=== PATIENT | female | born 1950 | race Caucasian/White ===

== ENCOUNTER → 2016-09-06 | Outpatient (REF) | payer BC ==
[~2016-09-06] MED LIST: ADVA230A INH; ALBU17IN INH; ALBU83IN INH; COLA100C PO; GABA300C3 PO; LEVA500T PO; PERC5TAB6 PO; PRED10TA PO; SPIR1CAP INH; VICO5TAB16 PO; [UNRECOGNIZED DRUG - REMARK] PO
== END ==
LOC: M LAB REF 17:02
PROVIDERS: ATTEND Internal Medicine Pulmonary Disease
DX: R05 Cough (principal)

== ENCOUNTER → 2016-09-21 | Outpatient (REF) | payer BC | LOC: M LAB REF 16:52 | PROVIDERS: ATTEND Internal Medicine Pulmonary Disease | DX: J44.1 Chronic obstructive pulmonary disease with (acute) exacerbation (principal) ==

== ENCOUNTER 2016-10-07 09:12 | Emergency (ER) | payer BC ==
[~2016-10-07] VITALS: Ht 154.9 cm; Wt 68.5 kg
[2016-10-07] MEDS ORDERED: methylPREDNISolone INJ 125 MG/2 ML VIAL (J2930) As Ordered ONE (10:25)
--- NOTE | 2016-10-07 10:28 | REP ---
Clinical: Cough . Comparison: 01/05/2015 . Technique: PA and lateral. Findings: The mediastinum and cardiac silhouette are normal. The lung [place] are clear and without acute consolidation, effusion, or pneumothorax. The skeletal structures are intact and normal. Impression: 1. No acute cardiopulmonary process. Signed by Pola Michele MD 10/07/2016 10:20 A
[2016-10-07] MEDS ORDERED: BUDESONIDE 0.5 MG/2 ML INHALATION SUSPENSION INH ONE (10:45)
[2016-10-07 10:54] LABS: BASO % 0.7 % (0.0-1.0); EOS # 0.1 K/mm3 (0.0-0.50); EOS % 1.8 % (0.0-3.0); LARGE UNSTAINED CELL # 0.1 K/mm3 (0.0-0.4); LARGE UNSTAINED CELL % 2.2 % (0.0-4.0); LYMPH # 0.9 K/mm3 (1.5-4.5); LYMPH % 25.3 % (24.0-44.0); MEAN CORPUSCULAR HEMOGLOBIN 30.1 pg (27.0-33.0); MONO # 0.3 K/mm3 (0.0-0.8); MONO % 7.4 % (0.0-5.0); NEUTROPHILS # 2.2 K/mm3 (1.8-7.7); NEUTROPHILS % 62.6 % (36.0-66.0); PLATELET COUNT, AUTOMATED 210 k/mm3 (150-450); RED CELL DISTRIBUTION WIDTH 11.9 % (11.5-14.5); WHITE BLOOD COUNT 3.5 K/mm3 (4.0-10.0)
[2016-10-07 11:15] LABS: ANION GAP 7 MEQ/L (8-16); BLOOD UREA NITROGEN 9 MG/DL (7-18); CALCIUM LEVEL 8.9 MG/DL (8.8-10.2); CARBON DIOXIDE LEVEL 27 MEQ/L (21-32); CHLORIDE LEVEL 105 MEQ/L (98-107); GLOMERULAR FILTRATION RATE > 60.0 (>45); GLUCOSE, FASTING 103 MG/DL (80-110); POTASSIUM SERUM 4.1 MEQ/L (3.5-5.1); SODIUM LEVEL 139 MEQ/L (136-145)
--- NOTE | 2016-10-07 12:27 | EDDOCDS ---
Nurse's Notes [facility] Name: Susan Long Age: 66 yrs Sex: Female : 1950 Arrival Date: 10/07/2016 Time: 09:12 Bed I4 / M4 Private MD: Jaylene Iverson E Diagnosis: Chronic obstructive pulmonary disease with (acute) exacerbation Presentation: 10/07 09:19 Presenting complaint: Patient states: cough, shortness of breath, fever x 1 month. Pt kc3 treated by PCP with antibiotics with no relief of symptoms. Pt reports worsening cough with increase in sputum. Pt [facility] by [facility]. Adult Sepsis Screening: The patient does not have new or worsening altered mentation. Patient has a respiratory rate of greater than or equal to 22 (1 point). Systolic blood pressure is greater than 100. Patient has a qSOFA score of 1- Negative Sepsis Screen. Suicide/Homicide risk assessment- the patient denies having any suicidal and/or homicidal ideations and does not present with any other emotional, behavioral or mental health complaints. Status: Patient is not a enterprise services manager or dependent. Transition of care: patient was not received from another setting of care. 09:19 Acuity: SAVANNAH Level 3 kc3 09:19 Method Of Arrival: Walkin/Carried/Asstd kc3 Triage Assessment: 09:24 General: Appears in no apparent distress, Behavior is anxious, appropriate for age, kc3 cooperative. Pain: Location: left leg Pain currently is 7 out of 10 on a pain scale. HIV screening NA for this visit Offered previously. Neurological: No deficits noted. Respiratory: Onset: The symptoms/episode began/occurred one month, Respiratory effort is even, Reports shortness of breath cough that is productive, pain with cough Pain is 10 out of 10 on a pain scale. Derm: Skin is pink, warm & dry. Historical: - Allergies: Bactrim (Hives); Levaquin; - Home Meds: 1. Albuterol Inhl 2. ProAir HFA 90 mcg/actuation inhalation HFAA 3. doxycycline hyclate 100 mg Oral cap 1 cap every 12 hours - PMHx: Arthritis; COPD; Cervical spine stenosis; - PSHx: Hysterectomy; Lumpectomy- Right; ; - Social history: Smoking status: Patient states former smoker of tobacco. No barriers to communication noted, The patient speaks fluent Spanish, Speaks appropriately for age. - Family history: Not pertinent. - : The pt / caregiver states he / she is not on anticoagulants. Home medication list is obtained from the patient. - Exposure Risk Screening:: None identified. Screenin:41 Screening information is obtained from the patient. Fall risk: At risk due to gait dls disturbance. Assistance ADL's: requires no assistance with activities of daily living. Abuse/DV Screen: The patient / caregiver reports he/she is: not in a situation that causes fear, pain or injury. Nutritional screening: No deficits noted. Advance Directives: Currently, there is no health care proxy. There is no active DNR order. There is no living will. There is no Power of Mechanism Inspector. Advance directive information has not previously been placed in an [facility] medical record. home support is adequate. Assessment: 11:42 General: Appears slender, uncomfortable, Behavior is anxious, cooperative. dls Neurological: No deficits noted. EENT: No deficits noted. Respiratory: Airway is patent Respiratory effort is even, Respiratory pattern is regular, symmetrical, Breath sounds are coarse inspiratory expiratory bilaterally. Breath sounds are diminished bilaterally. Reports shortness of breath at rest on exertion cough that is non-productive, persistent. GI: No deficits noted. : No deficits noted. Derm: No deficits noted. Musculoskeletal: No deficits noted. 11:44 General: Attempted to ambulate pt who only tolerated from room to doorway before she dls could not tolerate any more SAO2 was 97% but pt could not tolerate more exertion frequent harsh cough.. 12:24 Reassessment: Patient appears in no apparent distress at this time. Patient denies pain rs3 at this time. Patient states feeling better. Patient states symptoms have improved. 12:25 Cardiovascular: Capillary refill < 3 seconds Chest pain is denied. rs3 Vital Signs: 09:14 BP 176 / 75; Pulse 112; Resp 24; Temp 99.6(O); Pulse Ox 97% ; Weight 68.49 kg; Height 5 cmb ft. 1 in. (154.94 cm); Pain 10/10; 11:41 BP 128 / 102; Pulse 77; Resp 22; Temp 99.0(T); Pulse Ox 97% on R/A; Pain 0/10; dem1 09:14 Body Mass Index 28.53 (68.49 kg, 154.94 cm) cmb 11:41 Patient ambulated with pulse oximetry with a constant stat of 97%. Patient refused to dem1 continue ambulating after walking approximately 6ft. Vitals: 09:14 Log In Time: October 07, 2016 at 09:12. cmb ED Course: 09:14 Patient visited by Rhiannon Mathias. cmb 09:14 Jaylene Iverson is Private Physician. cmb 09:14 Patient moved to Waiting cmb 09:19 RN notified that patient meets Red Flag criteria. cmb 09:21 Triage Initiated kc3 09:29 Patient moved to Pre RCE kc3 09:43 Patient moved to Triage 1 mlb1 09:56 Roby Salgado PA-C is PHCP. cc10 09:56 Nas Zamora MD is Attending Physician. cc10 09:56 Patient visited by Roby Salgado PA-C. cc10 10:02 Patient moved to I4 / M4 mlb1 10:03 Patient visited by Roby Salgado PA-C. cc10 10:14 [facility] Payment Agreement was scanned into [employer] and attached to record. lg 10:33 Chest, 2 View (pa\E\lat) Returned. EDMS 10:46 BLOOD CULTURES Sent. dls 10:46 Lactic Acid (Arrington tube on ice) Sent. dls 10:46 Basic Metabolic Profile Sent. dls 10:46 CBC with Diff Sent. dls 10:47 Inserted saline lock: 20 gauge in left hand and blood collected. The patient tolerated dls the procedure well. No procedures done that require assistance. 11:18 Patient visited by Ginette Barkley RN. rs3 11:41 The patient / caregiver is instructed regarding the plan of care and ED course. dls Accompanied by Significant Other, Patient has correct armband on for positive identification. Placed in gown. Bed in low position. Call light in reach. Side rails up X 1. 11:43 Patient visited by Angel Jarrell. dem1 12:02 Jono Tucker DO is Referral Physician. cc10 12:05 Patient visited by Angel Jarrell. dem1 Administered Medications: 10:17 CANCELLED (Other Intervention Used): Pulmicort 2 mg Inhalation once cc10 10:46 Drug: Solu-MEDROL 125 mg [Solu-Medrol 500 mg intravenous solution (125 mg)] Route: IVP; dls Site: left hand; 11:08 Drug: Pulmicort 1 mg Route: Inhalation; cs15 RT: 11:09 Initial Med Neb Given as ordered. Respiratory: Respiratory effort is labored, cs15 Respiratory pattern is regular Sputum is thick yellow Breath sounds are coarse Breath sounds with crackles bilaterally. Reports that she has end stage COPD and that she was unable to take her long acting drug this morning. Order Results: Lab Order: Basic Metabolic Profile; SPEC'M 10/07/16 10:45 Test: GLUCOSE, FASTING; Value: 103; Range: 80-110; Units: MG/DL; Status: F Test: BLOOD UREA NITROGEN; Value: 9; Range: 7-18; Units: MG/DL; Status: F Test: CREATININE FOR GFR; Value: 0.70; Range: 0.55-1.02; Units: MG/DL; Status: F Test: GLOMERULAR FILTRATION RATE; Value: > 60.0; Range: >45; Status: F Test: SODIUM LEVEL; Value: 139; Range: 136-145; Units: MEQ/L; Status: F Test: POTASSIUM SERUM; Value: 4.1; Range: 3.5-5.1; Units: MEQ/L; Status: F Test: CHLORIDE LEVEL; Value: 105; Range: 98-107; Units: MEQ/L; Status: F Test: CARBON DIOXIDE LEVEL; Value: 27; Range: 21-32; Units: MEQ/L; Status: F Test: ANION GAP; Value: 7; Range: 8-16; Abnormal: Below low normal; Units: MEQ/L; Status: F Test: CALCIUM LEVEL; Value: 8.9; Range: 8.8-10.2; Units: MG/DL; Status: F Test Note: ; Units are mL/min/1.73 m2 Chronic Kidney Disease Staging per NKF: Stage I & II GFR >=60 Normal to Mildly Decreased Stage III GFR 30-59 Moderately Decreased Stage IV GFR 15-29 Severely Decreased Stage V GFR <15 Very Little GFR Left ESRD GFR <15 on CHIEF SECURITY OFFICER Lab Order: CBC with Diff; SPEC'M 10/07/16 10:45 Test: WHITE BLOOD COUNT; Value: 3.5; Range: 4.0-10.0; Abnormal: Below low normal; Units: K/mm3; Status: F Test: RED BLOOD COUNT; Value: 4.51; Range: 4.00-5.40; Units: M/mm3; Status: F Test: HEMOGLOBIN; Value: 13.6; Range: 12.0-16.0; Units: g/dl; Status: F Test: HEMATOCRIT; Value: 38.8; Range: 36.0-47.0; Units: %; Status: F Test: MEAN CORPUSCULAR VOLUME; Value: 86.0; Range: 80.0-96.0; Units: fl; Status: F Test: MEAN CORPUSCULAR HEMOGLOBIN; Value: 30.1; Range: 27.0-33.0; Units: pg; Status: F Test: MEAN CORPUSCULAR HGB CONC; Value: 35.0; Range: 32.0-36.5; Units: g/dl; Status: F Test: RED CELL DISTRIBUTION WIDTH; Value: 11.9; Range: 11.5-14.5; Units: %; Status: F Test: PLATELET COUNT, AUTOMATED; Value: 210; Range: 150-450; Units: k/mm3; Status: F Test: NEUTROPHILS %; Value: 62.6; Range: 36.0-66.0; Units: %; Status: F Test: LYMPH %; Value: 25.3; Range: 24.0-44.0; Units: %; Status: F Test: MONO %; Value: 7.4; Range: 0.0-5.0; Abnormal: Above high normal; Units: %; Status: F Test: EOS %; Value: 1.8; Range: 0.0-3.0; Units: %; Status: F Test: BASO %; Value: 0.7; Range: 0.0-1.0; Units: %; Status: F Test: LARGE UNSTAINED CELL %; Value: 2.2; Range: 0.0-4.0; Units: %; Status: F Test: NEUTROPHILS #; Value: 2.2; Range: 1.8-7.7; Units: K/mm3; Status: F Test: LYMPH #; Value: 0.9; Range: 1.5-4.5; Abnormal: Below low normal; Units: K/mm3; Status: F Test: MONO #; Value: 0.3; Range: 0.0-0.8; Units: K/mm3; Status: F Test: EOS #; Value: 0.1; Range: 0.0-0.50; Units: K/mm3; Status: F Test: BASO #; Value: 0.0; Range: 0.0-0.2; Units: K/mm3; Status: F Test: LARGE UNSTAINED CELL #; Value: 0.1; Range: 0.0-0.4; Units: K/mm3; Status: F Lab Order: D-Dimer Quant; SPEC'M 10/07/16 11:12 Test: D-DIMER QUANT; Value: 323.6; Range: <500; Units: ng/ml; Status: F Lab Order: Lactic Acid (Arrington tube on ice); SPEC'M 10/07/16 10:45 Test: LACTIC ACID SEPSIS PROTOCOL; Value: 1.4; Range: 0.4-2.0; Units: MMOL/L; Status: F Radiology Order: Chest, 2 View (pa\E\lat) Test: Chest, 2 View (pa\E\lat) REASON FOR EXAMINATION: Cough; Clinical: Cough .; ; Comparison: 01/05/2015 .; ; Technique: PA and lateral.; ; Findings:; The mediastinum and cardiac silhouette are normal. The lung [place] are clear and; without acute consolidation, effusion, or pneumothorax. The skeletal structures; are intact and normal.; ; Impression:; 1. No acute cardiopulmonary process.; ; ; Signed by; Pola Michele MD 10/07/2016 10:20 A; Outcome: 12:02 Discharge ordered by Provider. cc10 12:24 Discharge Assessment: patient administered narcotics - no. The following High Risk rs3 Discharge criteria are identified: None. Discharged to home with family. Condition: stable. Discharge instructions given to patient, Instructed on discharge instructions, follow up and referral plans. medication usage, Demonstrated understanding of instructions, medications, Pt was receptive of discharge instructions/ teaching. Prescriptions given X 1. No special radiology studies were completed. Property :Personal belongings accompany Pt. 12:25 Patient left the ED. rs3 Signatures: Dispatcher [facility] Pat Billings RN RN Tin Cotton, Reg Reg lg Melvin Horvath RN RN mlb1 Ginette Barkley,RN RN rs3 Angel Jarrell dem1 Rhiannon Mathias cmb Roby Salgado, PA-C PA-C cc10 Clair Horton,RASHIDA RN kc3 Gigi Nunes,RT RT cs15 Corrections: (The following items were deleted from the chart) 09:26 09:19 Presenting complaint: Patient states: cough, shortness of breath, fever x 1 kc3 month. Pt treated by PCP with antibiotics with no relief of symptoms. Pt reports worsening cough with increase in sputum. kc3 MTDD
--- NOTE | 2016-10-07 12:27 | EDDOCDS ---
Physician Documentation [facility] Name: Susan Long Age: 66 yrs Sex: Female : 1950 Arrival Date: 10/07/2016 Time: 09:12 Bed I4 / M4 Private MD: Jaylene Iverson E Disposition: 10/07/16 12:02 Discharged to Home/Self Care. Impression: Chronic obstructive pulmonary disease with (acute) exacerbation. - Condition is Stable. - Discharge Instructions: Chronic Obstructive Pulmonary Disease. - Prescriptions for Prednisone 20 mg Oral Tablet - take 1 tablet by ORAL route once daily for 5 days; 5 tablet. - Medication Reconciliation form. - Follow up: Emergency Department; When: As needed. Follow up: Jono Tucker DO; When: Call to arrange an appointment; Reason: Wound/Symptom Recheck, Recheck today's complaints, Worsening of conditions, Continuance of care. - Problem is chronic. - Symptoms have improved. Historical: - Allergies: Bactrim (Hives); Levaquin; - Home Meds: 1. Albuterol Inhl 2. ProAir HFA 90 mcg/actuation inhalation HFAA 3. doxycycline hyclate 100 mg Oral cap 1 cap every 12 hours - PMHx: Arthritis; COPD; Cervical spine stenosis; - PSHx: Hysterectomy; Lumpectomy- Right; ; - Social history: Smoking status: Patient states former smoker of tobacco. No barriers to communication noted, The patient speaks fluent Romanian, Speaks appropriately for age. - Family history: Not pertinent. - : The pt / caregiver states he / she is not on anticoagulants. Home medication list is obtained from the patient. - Exposure Risk Screening:: None identified. Vital Signs: 10/07 09:14 BP 176 / 75; Pulse 112; Resp 24; Temp 99.6(O); Pulse Ox 97% ; Weight 68.49 kg / 150.99 cmb lbs; Height 5 ft. 1 in. (154.94 cm); Pain 10/10; 11:41 BP 128 / 102; Pulse 77; Resp 22; Temp 99.0(T); Pulse Ox 97% on R/A; Pain 0/10; dem1 09:14 Body Mass Index 28.53 (68.49 kg, 154.94 cm) cmb 11:41 Patient ambulated with pulse oximetry with a constant stat of 97%. Patient refused to dem1 continue ambulating after walking approximately 6ft. MDM: 10:05 Solu-MEDROL 125 mg IVP once ordered. cc10 10:05 -Blood Culture (Adults Only), peripheral from different site, or from device/port/PICC cc10 etc. if present ordered. 10:05 IV Saline Lock ordered. cc10 10:05 Call Respiratory ordered. cc10 10:06 Basic Metabolic Profile Ordered. EDMS 10:06 CBC with Diff Ordered. EDMS 10:06 D-Dimer Quant Ordered. EDMS 10:06 Lactic Acid (Arrington tube on ice) Ordered. EDMS 10:06 -Blood Culture Ordered. EDMS 10:07 Chest, 2 View (pa\E\lat) Ordered. EDMS 10:07 Call Respiratory complete. dem1 10:09 -Blood Culture (Adults Only), peripheral from different site, or from device/port/PICC dem1 etc. if present complete. 10:10 BLOOD CULTURES Ordered. EDMS 10:11 Financial registration complete. lg 10:14 [facility] Payment Agreement was scanned into [employer] and attached to record. lg 10:17 Pulmicort 1 mg Inhalation once ordered. cc10 11:34 Basic Metabolic Profile Reviewed. cc10 11:34 CBC with Diff Reviewed. cc10 11:34 D-Dimer Quant Reviewed. cc10 11:34 Lactic Acid (Arrington tube on ice) Reviewed. cc10 11:34 Chest, 2 View (pa\E\lat) Reviewed. cc10 11:34 Ambulate Patient wth Pulse Oximetry ordered. cc10 11:34 Vital Signs ordered. cc10 Administered Medications: 10:17 CANCELLED (Other Intervention Used): Pulmicort 2 mg Inhalation once cc10 10:46 Drug: Solu-MEDROL 125 mg [Solu-Medrol 500 mg intravenous solution (125 mg)] Route: IVP; dls Site: left hand; 11:08 Drug: Pulmicort 1 mg Route: Inhalation; cs15 Signatures: Dispatcher [employer] EDMS Pat Malagon RN RN dls Tin Kang, Reg Reg lg Ginette Barkley RN RN rs3 Angel Jarrell dem1 Roby Salgado, PA-C PA-C cc10 Clair Horton RN RN kc3 Gigi Nunes RT cs15 The chart was reviewed and I authenticate all verbal orders and agree with the evaluation and treatment provided.Corrections: (The following items were deleted from the chart) 10:17 10:05 Pulmicort 2 mg Inhalation once ordered. cc10 cc10 Attachments: 10:14 [facility] Payment Agreement lg MTDD
--- NOTE | 2016-10-09 13:26 | EDDOCDS ---
Physician Documentation [facility] [place] Name: Susan Long Age: 66 yrs Sex: Female : 1950 Arrival Date: 10/07/2016 Time: 09:12 Bed I4 / M4 Private MD: Jaylene Iverson E Disposition: 10/07/16 12:02 Discharged to Home/Self Care. Impression: Chronic obstructive pulmonary disease with (acute) exacerbation. - Condition is Stable. - Discharge Instructions: Chronic Obstructive Pulmonary Disease. - Prescriptions for Prednisone 20 mg Oral Tablet - take 1 tablet by ORAL route once daily for 5 days; 5 tablet. - Medication Reconciliation form. - Follow up: Emergency Department; When: As needed. Follow up: Jono Tucker DO; When: Call to arrange an appointment; Reason: Wound/Symptom Recheck, Recheck today's complaints, Worsening of conditions, Continuance of care. - Problem is chronic. - Symptoms have improved. Historical: - Allergies: Bactrim (Hives); Levaquin; - Home Meds: 1. Albuterol Inhl 2. ProAir HFA 90 mcg/actuation inhalation HFAA 3. doxycycline hyclate 100 mg Oral cap 1 cap every 12 hours - PMHx: Arthritis; COPD; Cervical spine stenosis; - PSHx: Hysterectomy; Lumpectomy- Right; ; - Social history: Smoking status: Patient states former smoker of tobacco. No barriers to communication noted, The patient speaks fluent Serbian, Speaks appropriately for age. - Family history: Not pertinent. - : The pt / caregiver states he / she is not on anticoagulants. Home medication list is obtained from the patient. - Exposure Risk Screening:: None identified. Vital Signs: 10/07 09:14 BP 176 / 75; Pulse 112; Resp 24; Temp 99.6(O); Pulse Ox 97% ; Weight 68.49 kg / 150.99 cmb lbs; Height 5 ft. 1 in. (154.94 cm); Pain 10/10; 11:41 BP 128 / 102; Pulse 77; Resp 22; Temp 99.0(T); Pulse Ox 97% on R/A; Pain 0/10; dem1 09:14 Body Mass Index 28.53 (68.49 kg, 154.94 cm) cmb 11:41 Patient ambulated with pulse oximetry with a constant stat of 97%. Patient refused to dem1 continue ambulating after walking approximately 6ft. MDM: 10:05 Solu-MEDROL 125 mg IVP once ordered. cc10 10:05 -Blood Culture (Adults Only), peripheral from different site, or from device/port/PICC cc10 etc. if present ordered. 10:05 IV Saline Lock ordered. cc10 10:05 Call Respiratory ordered. cc10 10:06 Basic Metabolic Profile Ordered. EDMS 10:06 CBC with Diff Ordered. EDMS 10:06 D-Dimer Quant Ordered. EDMS 10:06 Lactic Acid (Arrington tube on ice) Ordered. EDMS 10:06 -Blood Culture Ordered. EDMS 10:07 Chest, 2 View (pa\E\lat) Ordered. EDMS 10:07 Call Respiratory complete. dem1 10:09 -Blood Culture (Adults Only), peripheral from different site, or from device/port/PICC dem1 etc. if present complete. 10:10 BLOOD CULTURES Ordered. EDMS 10:11 Financial registration complete. lg 10:14 [facility] Payment Agreement was scanned into [employer] and attached to record. lg 10:17 Pulmicort 1 mg Inhalation once ordered. cc10 11:34 Basic Metabolic Profile Reviewed. cc10 11:34 CBC with Diff Reviewed. cc10 11:34 D-Dimer Quant Reviewed. cc10 11:34 Lactic Acid (Arrington tube on ice) Reviewed. cc10 11:34 Chest, 2 View (pa\E\lat) Reviewed. cc10 11:34 Ambulate Patient wth Pulse Oximetry ordered. cc10 11:34 Vital Signs ordered. cc10 16:56 T-Sheet-- Draft Copy was scanned into [employer] and attached to record. klr Administered Medications: 10:17 CANCELLED (Other Intervention Used): Pulmicort 2 mg Inhalation once cc10 10:46 Drug: Solu-MEDROL 125 mg [Solu-Medrol 500 mg intravenous solution (125 mg)] Route: IVP; dls Site: left hand; 11:08 Drug: Pulmicort 1 mg Route: Inhalation; cs15 Signatures: Dispatcher [employer] EDMS Pat Malagon RN RN dls Tin Kang, Todd Reg lg Ginette Barkley RN RN rs3 Angel Jarrell dem1 Roby Salgado PAGio PA-C cc10 Clair Horton,RN RN kc3 Niki Novoa klr Gigi Nunes RT cs15 The chart was reviewed and I authenticate all verbal orders and agree with the evaluation and treatment provided.Corrections: (The following items were deleted from the chart) 10:17 10:05 Pulmicort 2 mg Inhalation once ordered. cc10 cc10 Attachments: 10:14 [facility] Payment Agreement lg 16:56 T-Sheet-- Draft Copy klr Chart Complete MTDD
--- NOTE | 2016-10-09 13:26 | EDDOCDS ---
Physician Documentation [facility] Name: Susan Long Age: 66 yrs Sex: Female : 1950 Arrival Date: 10/07/2016 Time: 09:12 Bed I4 / M4 Private MD: Jaylene Iverson E Disposition: 10/07/16 12:02 Discharged to Home/Self Care. Impression: Chronic obstructive pulmonary disease with (acute) exacerbation. - Condition is Stable. - Discharge Instructions: Chronic Obstructive Pulmonary Disease. - Prescriptions for Prednisone 20 mg Oral Tablet - take 1 tablet by ORAL route once daily for 5 days; 5 tablet. - Medication Reconciliation form. - Follow up: Emergency Department; When: As needed. Follow up: Jono Tucker DO; When: Call to arrange an appointment; Reason: Wound/Symptom Recheck, Recheck today's complaints, Worsening of conditions, Continuance of care. - Problem is chronic. - Symptoms have improved. Historical: - Allergies: Bactrim (Hives); Levaquin; - Home Meds: 1. Albuterol Inhl 2. ProAir HFA 90 mcg/actuation inhalation HFAA 3. doxycycline hyclate 100 mg Oral cap 1 cap every 12 hours - PMHx: Arthritis; COPD; Cervical spine stenosis; - PSHx: Hysterectomy; Lumpectomy- Right; ; - Social history: Smoking status: Patient states former smoker of tobacco. No barriers to communication noted, The patient speaks fluent Kyrgyz, Speaks appropriately for age. - Family history: Not pertinent. - : The pt / caregiver states he / she is not on anticoagulants. Home medication list is obtained from the patient. - Exposure Risk Screening:: None identified. Vital Signs: 10/07 09:14 BP 176 / 75; Pulse 112; Resp 24; Temp 99.6(O); Pulse Ox 97% ; Weight 68.49 kg / 150.99 cmb lbs; Height 5 ft. 1 in. (154.94 cm); Pain 10/10; 11:41 BP 128 / 102; Pulse 77; Resp 22; Temp 99.0(T); Pulse Ox 97% on R/A; Pain 0/10; dem1 09:14 Body Mass Index 28.53 (68.49 kg, 154.94 cm) cmb 11:41 Patient ambulated with pulse oximetry with a constant stat of 97%. Patient refused to dem1 continue ambulating after walking approximately 6ft. MDM: 10:05 Solu-MEDROL 125 mg IVP once ordered. cc10 10:05 -Blood Culture (Adults Only), peripheral from different site, or from device/port/PICC cc10 etc. if present ordered. 10:05 IV Saline Lock ordered. cc10 10:05 Call Respiratory ordered. cc10 10:06 Basic Metabolic Profile Ordered. EDMS 10:06 CBC with Diff Ordered. EDMS 10:06 D-Dimer Quant Ordered. EDMS 10:06 Lactic Acid (Arrington tube on ice) Ordered. EDMS 10:06 -Blood Culture Ordered. EDMS 10:07 Chest, 2 View (pa\E\lat) Ordered. EDMS 10:07 Call Respiratory complete. dem1 10:09 -Blood Culture (Adults Only), peripheral from different site, or from device/port/PICC dem1 etc. if present complete. 10:10 BLOOD CULTURES Ordered. EDMS 10:11 Financial registration complete. lg 10:14 [facility] Payment Agreement was scanned into [employer] and attached to record. lg 10:17 Pulmicort 1 mg Inhalation once ordered. cc10 11:34 Basic Metabolic Profile Reviewed. cc10 11:34 CBC with Diff Reviewed. cc10 11:34 D-Dimer Quant Reviewed. cc10 11:34 Lactic Acid (Arrington tube on ice) Reviewed. cc10 11:34 Chest, 2 View (pa\E\lat) Reviewed. cc10 11:34 Ambulate Patient wth Pulse Oximetry ordered. cc10 11:34 Vital Signs ordered. cc10 16:56 T-Sheet-- Draft Copy was scanned into [employer] and attached to record. klr Administered Medications: 10:17 CANCELLED (Other Intervention Used): Pulmicort 2 mg Inhalation once cc10 10:46 Drug: Solu-MEDROL 125 mg [Solu-Medrol 500 mg intravenous solution (125 mg)] Route: IVP; dls Site: left hand; 11:08 Drug: Pulmicort 1 mg Route: Inhalation; cs15 Signatures: Dispatcher [employer] EDMS Pat Malagon RN RN dls Tin Kang, Todd Reg lg Ginette Barkley RN RN rs3 Angel Jarrell dem1 Roby Salgado PAGio PA-C cc10 Clair Horton,RN RN kc3 Niki Novoa klr Gigi Nunes RT cs15 The chart was reviewed and I authenticate all verbal orders and agree with the evaluation and treatment provided.Corrections: (The following items were deleted from the chart) 10:17 10:05 Pulmicort 2 mg Inhalation once ordered. cc10 cc10 Attachments: 10:14 [facility] Payment Agreement lg 16:56 T-Sheet-- Draft Copy klr Chart Complete MTDD
--- NOTE | 2016-10-09 13:26 | EDDOCDS ---
Nurse's Notes [facility] Name: Susan Long Age: 66 yrs Sex: Female : 1950 Arrival Date: 10/07/2016 Time: 09:12 Bed I4 / M4 Private MD: Jaylene Iverson E Diagnosis: Chronic obstructive pulmonary disease with (acute) exacerbation Presentation: 10/07 09:19 Presenting complaint: Patient states: cough, shortness of breath, fever x 1 month. Pt kc3 treated by PCP with antibiotics with no relief of symptoms. Pt reports worsening cough with increase in sputum. Pt [facility] by Dr[facility]. Adult Sepsis Screening: The patient does not have new or worsening altered mentation. Patient has a respiratory rate of greater than or equal to 22 (1 point). Systolic blood pressure is greater than 100. Patient has a qSOFA score of 1- Negative Sepsis Screen. Suicide/Homicide risk assessment- the patient denies having any suicidal and/or homicidal ideations and does not present with any other emotional, behavioral or mental health complaints. Status: Patient is not a statement services representative or dependent. Transition of care: patient was not received from another setting of care. 09:19 Acuity: SAVANNAH Level 3 kc3 09:19 Method Of Arrival: Walkin/Carried/Asstd kc3 Triage Assessment: 09:24 General: Appears in no apparent distress, Behavior is anxious, appropriate for age, kc3 cooperative. Pain: Location: left leg Pain currently is 7 out of 10 on a pain scale. HIV screening NA for this visit Offered previously. Neurological: No deficits noted. Respiratory: Onset: The symptoms/episode began/occurred one month, Respiratory effort is even, Reports shortness of breath cough that is productive, pain with cough Pain is 10 out of 10 on a pain scale. Derm: Skin is pink, warm & dry. Historical: - Allergies: Bactrim (Hives); Levaquin; - Home Meds: 1. Albuterol Inhl 2. ProAir HFA 90 mcg/actuation inhalation HFAA 3. doxycycline hyclate 100 mg Oral cap 1 cap every 12 hours - PMHx: Arthritis; COPD; Cervical spine stenosis; - PSHx: Hysterectomy; Lumpectomy- Right; ; - Social history: Smoking status: Patient states former smoker of tobacco. No barriers to communication noted, The patient speaks fluent Thai, Speaks appropriately for age. - Family history: Not pertinent. - : The pt / caregiver states he / she is not on anticoagulants. Home medication list is obtained from the patient. - Exposure Risk Screening:: None identified. Screenin:41 Screening information is obtained from the patient. Fall risk: At risk due to gait dls disturbance. Assistance ADL's: requires no assistance with activities of daily living. Abuse/DV Screen: The patient / caregiver reports he/she is: not in a situation that causes fear, pain or injury. Nutritional screening: No deficits noted. Advance Directives: Currently, there is no health care proxy. There is no active DNR order. There is no living will. There is no Power of Director Immunology. Advance directive information has not previously been placed in an [facility] medical record. home support is adequate. Assessment: 11:42 General: Appears slender, uncomfortable, Behavior is anxious, cooperative. dls Neurological: No deficits noted. EENT: No deficits noted. Respiratory: Airway is patent Respiratory effort is even, Respiratory pattern is regular, symmetrical, Breath sounds are coarse inspiratory expiratory bilaterally. Breath sounds are diminished bilaterally. Reports shortness of breath at rest on exertion cough that is non-productive, persistent. GI: No deficits noted. : No deficits noted. Derm: No deficits noted. Musculoskeletal: No deficits noted. 11:44 General: Attempted to ambulate pt who only tolerated from room to doorway before she dls could not tolerate any more SAO2 was 97% but pt could not tolerate more exertion frequent harsh cough.. 12:24 Reassessment: Patient appears in no apparent distress at this time. Patient denies pain rs3 at this time. Patient states feeling better. Patient states symptoms have improved. 12:25 Cardiovascular: Capillary refill < 3 seconds Chest pain is denied. rs3 Vital Signs: 09:14 BP 176 / 75; Pulse 112; Resp 24; Temp 99.6(O); Pulse Ox 97% ; Weight 68.49 kg; Height 5 cmb ft. 1 in. (154.94 cm); Pain 10/10; 11:41 BP 128 / 102; Pulse 77; Resp 22; Temp 99.0(T); Pulse Ox 97% on R/A; Pain 0/10; dem1 09:14 Body Mass Index 28.53 (68.49 kg, 154.94 cm) cmb 11:41 Patient ambulated with pulse oximetry with a constant stat of 97%. Patient refused to dem1 continue ambulating after walking approximately 6ft. Vitals: 09:14 Log In Time: October 07, 2016 at 09:12. cmb ED Course: 09:14 Patient visited by Rhiannon Mathias. cmb 09:14 Jaylene Iverson is Private Physician. cmb 09:14 Patient moved to Waiting cmb 09:19 RN notified that patient meets Red Flag criteria. cmb 09:21 Triage Initiated kc3 09:29 Patient moved to Pre RCE kc3 09:43 Patient moved to Triage 1 mlb1 09:56 Roby Salgado PA-C is PHCP. cc10 09:56 Nas Zamora MD is Attending Physician. cc10 09:56 Patient visited by Roby Salgado PA-C. cc10 10:02 Patient moved to I4 / M4 mlb1 10:03 Patient visited by Roby Salgado PA-C. cc10 10:14 [facility] Payment Agreement was scanned into [employer] and attached to record. lg 10:33 Chest, 2 View (pa\E\lat) Returned. EDMS 10:46 BLOOD CULTURES Sent. dls 10:46 Lactic Acid (Arrington tube on ice) Sent. dls 10:46 Basic Metabolic Profile Sent. dls 10:46 CBC with Diff Sent. dls 10:47 Inserted saline lock: 20 gauge in left hand and blood collected. The patient tolerated dls the procedure well. No procedures done that require assistance. 11:18 Patient visited by Ginette Barkley RN. rs3 11:41 The patient / caregiver is instructed regarding the plan of care and ED course. dls Accompanied by Significant Other, Patient has correct armband on for positive identification. Placed in gown. Bed in low position. Call light in reach. Side rails up X 1. 11:43 Patient visited by Angel Jarrell. dem1 12:02 Jono Tucker DO is Referral Physician. cc10 12:05 Patient visited by Angel Jarrell. dem1 16:56 T-Sheet-- Draft Copy was scanned into [employer] and attached to record. klr Administered Medications: 10:17 CANCELLED (Other Intervention Used): Pulmicort 2 mg Inhalation once cc10 10:46 Drug: Solu-MEDROL 125 mg [Solu-Medrol 500 mg intravenous solution (125 mg)] Route: IVP; dls Site: left hand; 11:08 Drug: Pulmicort 1 mg Route: Inhalation; cs15 RT: 11:09 Initial Med Neb Given as ordered. Respiratory: Respiratory effort is labored, cs15 Respiratory pattern is regular Sputum is thick yellow Breath sounds are coarse Breath sounds with crackles bilaterally. Reports that she has end stage COPD and that she was unable to take her long acting drug this morning. Order Results: Lab Order: -Blood Culture; SPEC'M 10/07/16 10:45 Test: BLOOD CULTURE; Value: No growth after 24 hours . All specimens observed; Status: F Test: BLOOD CULTURE; Value: for 5 days. Results final at that time.; Status: F Test: BLOOD CULTURE; Value: No Growth after 48 hours. All Specimens observed; Status: F Test: BLOOD CULTURE; Value: for 7 days. Results final at that time.; Status: F Lab Order: Basic Metabolic Profile; SPEC'M 10/07/16 10:45 Test: GLUCOSE, FASTING; Value: 103; Range: 80-110; Units: MG/DL; Status: F Test: BLOOD UREA NITROGEN; Value: 9; Range: 7-18; Units: MG/DL; Status: F Test: CREATININE FOR GFR; Value: 0.70; Range: 0.55-1.02; Units: MG/DL; Status: F Test: GLOMERULAR FILTRATION RATE; Value: > 60.0; Range: >45; Status: F Test: SODIUM LEVEL; Value: 139; Range: 136-145; Units: MEQ/L; Status: F Test: POTASSIUM SERUM; Value: 4.1; Range: 3.5-5.1; Units: MEQ/L; Status: F Test: CHLORIDE LEVEL; Value: 105; Range: 98-107; Units: MEQ/L; Status: F Test: CARBON DIOXIDE LEVEL; Value: 27; Range: 21-32; Units: MEQ/L; Status: F Test: ANION GAP; Value: 7; Range: 8-16; Abnormal: Below low normal; Units: MEQ/L; Status: F Test: CALCIUM LEVEL; Value: 8.9; Range: 8.8-10.2; Units: MG/DL; Status: F Test Note: ; Units are mL/min/1.73 m2 Chronic Kidney Disease Staging per NKF: Stage I & II GFR >=60 Normal to Mildly Decreased Stage III GFR 30-59 Moderately Decreased Stage IV GFR 15-29 Severely Decreased Stage V GFR <15 Very Little GFR Left ESRD GFR <15 on FIXTURE RELAMPER Lab Order: CBC with Diff; SPEC'M 10/07/16 10:45 Test: WHITE BLOOD COUNT; Value: 3.5; Range: 4.0-10.0; Abnormal: Below low normal; Units: K/mm3; Status: F Test: RED BLOOD COUNT; Value: 4.51; Range: 4.00-5.40; Units: M/mm3; Status: F Test: HEMOGLOBIN; Value: 13.6; Range: 12.0-16.0; Units: g/dl; Status: F Test: HEMATOCRIT; Value: 38.8; Range: 36.0-47.0; Units: %; Status: F Test: MEAN CORPUSCULAR VOLUME; Value: 86.0; Range: 80.0-96.0; Units: fl; Status: F Test: MEAN CORPUSCULAR HEMOGLOBIN; Value: 30.1; Range: 27.0-33.0; Units: pg; Status: F Test: MEAN CORPUSCULAR HGB CONC; Value: 35.0; Range: 32.0-36.5; Units: g/dl; Status: F Test: RED CELL DISTRIBUTION WIDTH; Value: 11.9; Range: 11.5-14.5; Units: %; Status: F Test: PLATELET COUNT, AUTOMATED; Value: 210; Range: 150-450; Units: k/mm3; Status: F Test: NEUTROPHILS %; Value: 62.6; Range: 36.0-66.0; Units: %; Status: F Test: LYMPH %; Value: 25.3; Range: 24.0-44.0; Units: %; Status: F Test: MONO %; Value: 7.4; Range: 0.0-5.0; Abnormal: Above high normal; Units: %; Status: F Test: EOS %; Value: 1.8; Range: 0.0-3.0; Units: %; Status: F Test: BASO %; Value: 0.7; Range: 0.0-1.0; Units: %; Status: F Test: LARGE UNSTAINED CELL %; Value: 2.2; Range: 0.0-4.0; Units: %; Status: F Test: NEUTROPHILS #; Value: 2.2; Range: 1.8-7.7; Units: K/mm3; Status: F Test: LYMPH #; Value: 0.9; Range: 1.5-4.5; Abnormal: Below low normal; Units: K/mm3; Status: F Test: MONO #; Value: 0.3; Range: 0.0-0.8; Units: K/mm3; Status: F Test: EOS #; Value: 0.1; Range: 0.0-0.50; Units: K/mm3; Status: F Test: BASO #; Value: 0.0; Range: 0.0-0.2; Units: K/mm3; Status: F Test: LARGE UNSTAINED CELL #; Value: 0.1; Range: 0.0-0.4; Units: K/mm3; Status: F Lab Order: D-Dimer Quant; SPEC' 10/07/16 11:12 Test: D-DIMER QUANT; Value: 323.6; Range: <500; Units: ng/ml; Status: F Lab Order: Lactic Acid (Arrington tube on ice); SPEC'M 10/07/16 10:45 Test: LACTIC ACID SEPSIS PROTOCOL; Value: 1.4; Range: 0.4-2.0; Units: MMOL/L; Status: F Lab Order: BLOOD CULTURES; SPEC'M 10/07/16 11:12 Test: BLOOD CULTURE; Value: No growth after 24 hours . All specimens observed; Status: F Test: BLOOD CULTURE; Value: for 5 days. Results final at that time.; Status: F Test: BLOOD CULTURE; Value: No Growth after 48 hours. All Specimens observed; Status: F Test: BLOOD CULTURE; Value: for 7 days. Results final at that time.; Status: F Radiology Order: Chest, 2 View (pa\E\lat) Test: Chest, 2 View (pa\E\lat) REASON FOR EXAMINATION: Cough; Clinical: Cough .; ; Comparison: 01/05/2015 .; ; Technique: PA and lateral.; ; Findings:; The mediastinum and cardiac silhouette are normal. The lung [place] are clear and; without acute consolidation, effusion, or pneumothorax. The skeletal structures; are intact and normal.; ; Impression:; 1. No acute cardiopulmonary process.; ; ; Signed by; Pola Michele MD 10/07/2016 10:20 A; Outcome: 12:02 Discharge ordered by Provider. cc10 12:24 Discharge Assessment: patient administered narcotics - no. The following High Risk rs3 Discharge criteria are identified: None. Discharged to home with family. Condition: stable. Discharge instructions given to patient, Instructed on discharge instructions, follow up and referral plans. medication usage, Demonstrated understanding of instructions, medications, Pt was receptive of discharge instructions/ teaching. Prescriptions given X 1. No special radiology studies were completed. Property :Personal belongings accompany Pt. 12:25 Patient left the ED. rs3 Signatures: Dispatcher [employer] EDMS Pat Malagon RN RN dls Tin Kang, Todd Reg Melvin Horvath RN RN mlb1 Ginette Barkley RN RN rs3 Angel Jarrell dem1 Rhiannon Mathias cmb Roby Salgado, PA-C PA-C cc10 Clair Horton RN RN kc3 Gigi Nunes,RT RT cs15 Niki Novoa Corrections: (The following items were deleted from the chart) 09:26 09:19 Presenting complaint: Patient states: cough, shortness of breath, fever x 1 kc3 month. Pt treated by PCP with antibiotics with no relief of symptoms. Pt reports worsening cough with increase in sputum. kc3 Chart Complete MTDD
== END 2016-10-07 12:25 | disposition home or self-care (01) ==
LOC: M ED 09:12
DX: J44.1 Chronic obstructive pulmonary disease with (acute) exacerbation (principal); M19.90 Unspecified osteoarthritis, unspecified site; M48.02 Spinal stenosis, cervical region; Z88.1 Allergy status to other antibiotic agents; Z87.891 Personal history of nicotine dependence
CPT/HCPCS: 36415; 71020; 80048; 83605; 85025; 85379; 87040; 94640; 96374; 99284; J2930

== ENCOUNTER → 2017-05-22 | Outpatient (CLI) | payer BC ==
[~2017-05-22] MED LIST changes: -COLA100C PO; +COLA100C5 PO; +GABA-282 PO; -GABA300C3 PO; +LEVA1TAB2 PO; -LEVA500T PO; +PERC5TAB12 PO; -PERC5TAB6 PO
--- NOTE | 2017-05-22 16:26 | REP ---
Focused left breast sonography: History: 6-month follow-up benign ultrasound-guided needle biopsy 11/27/2016. Comparison is made with sonography from 11/27/2016 and 11/03/2016. Comparison unilateral mammography left breast 11/27/2016, and 11/03/2016. Findings: Scanning of the left breast was performed from 9 o'clock to 11 o'clock. The previously biopsied area was at 10 o'clock. We were unable to identify the previously biopsied hypoechoic lesion. No new lesion is identified. Some acoustic shadowing is seen in the retroareolar region with fibrocystic changes. Impression: The previously biopsied hypoechoic lesion is no longer visible at 10 o'clock in the left breast. Signed by Jagdish Loyola MD 05/22/2017 05:31 P
== END ==
LOC: M RAD 13:32
PROVIDERS: ATTEND Surgery
DX: R92.8 Other abnormal and inconclusive findings on diagnostic imaging of breast (principal)

== ENCOUNTER → 2017-05-24 | Outpatient (CLI) | payer BC ==
--- NOTE | 2017-05-25 06:34 | REP ---
Clinical: Lung screening. History smoking. Comparison: 05/20/2015 Technique: Axial low-dose noncontrast images from the thoracic inlet to the upper abdomen using lung screening technique. Findings: The lung [place] are well-aerated and mild chronic COPD is again noted. No consolidation, significant nodule or mass lesion is appreciated. 4 mm noncalcified nodule in the periphery of the right upper lobe remains stable. No pleural effusion/reaction or pneumothorax. Tracheobronchial tree is patent. Mediastinum demonstrates mild atherosclerotic changes of the coronary arteries without cardiomegaly. Impression: Lung-RADS category II. Stable 4 mm noncalcified nodule in the right upper lobe unchanged compared with 2013. No significant pulmonary nodule or abnormality is appreciated. Signed by Pola Michele MD 05/25/2017 06:25 A
== END ==
LOC: M RAD 15:54
PROVIDERS: ATTEND Internal Medicine Pulmonary Disease
DX: Z12.2 Encounter for screening for malignant neoplasm of respiratory organs (principal); R91.1 Solitary pulmonary nodule; F17.210 Nicotine dependence, cigarettes, uncomplicated; J44.9 Chronic obstructive pulmonary disease, unspecified

== ENCOUNTER 2018-02-24 21:55 | Emergency (ER) | payer MEDICARE, BC ==
[2018-02-24 23:11] LABS: HEMATOCRIT 39.9 % (36.0-47.0); HEMOGLOBIN 13.6 g/dl (12.0-15.5); MEAN CORPUSCULAR HEMOGLOBIN 29.7 pg (27.0-33.0); MEAN CORPUSCULAR HGB CONC 34.1 g/dl (32.0-36.5); MEAN CORPUSCULAR VOLUME 87.1 fl (80.0-96.0); PLATELET COUNT, AUTOMATED 269 10^3/uL (150-450); RED BLOOD COUNT 4.58 10^6/uL (4.00-5.40); RED CELL DISTRIBUTION WIDTH 12.1 % (11.5-14.5)
[2018-02-24 23:57] LABS: ALBUMIN 3.9 GM/DL (3.2-5.2); ALKALINE PHOSPHATASE 62 U/L (45-117); ALT/SGPT 20 U/L (12-78); ANION GAP 13 MEQ/L (8-16); AST/SGOT 15 U/L (7-37); BILIRUBIN,DIRECT 0.1 MG/DL (0.0-0.2); BILIRUBIN,TOTAL 0.3 MG/DL (0.2-1.0); BLOOD UREA NITROGEN 14 MG/DL (7-18); CALCIUM LEVEL 8.8 MG/DL (8.8-10.2); CARBON DIOXIDE LEVEL 22 MEQ/L (21-32); CHLORIDE LEVEL 110 MEQ/L (98-107); CREATININE FOR GFR 0.74 MG/DL (0.55-1.30); ETHYL ALCOHOL (ETHANOL) 0.088 % (0.000-0.010); GLOMERULAR FILTRATION RATE > 60.0 (>45); GLUCOSE, FASTING 100 MG/DL (70-100); POTASSIUM SERUM 3.7 MEQ/L (3.5-5.1); SALICYLATE LEVEL < 1.7 MG/DL (5.0-30.0); SODIUM LEVEL 145 MEQ/L (136-145); TOTAL PROTEIN 6.9 GM/DL (6.4-8.2)
[2018-02-24 23:58] LABS: ACETAMINOPHEN LEVEL < 2.0 UG/ML (10.0-30.0)
[2018-02-25 00:44] LABS: AMPHETAMINES LEVEL URINE NEGATIVE (NEGATIVE); BARBITURATES URINE NEGATIVE (NEGATIVE); BENZODIAZEPINES URINE NEGATIVE (NEGATIVE); CANNABINOIDS URINE NEGATIVE (NEGATIVE); COCAINE METABOLITE URINE NEGATIVE (NEGATIVE); METHADONE URINE NEGATIVE (NEGATIVE); OPIATES URINE NEGATIVE (NEGATIVE); PHENCYCLIDINE URINE NEGATIVE (NEGATIVE)
== END 2018-02-25 04:15 | disposition home or self-care (01) ==
LOC: M ED 21:55
DX: F32.9 Major depressive disorder, single episode, unspecified (principal); J44.9 Chronic obstructive pulmonary disease, unspecified; Z87.891 Personal history of nicotine dependence; Z88.2 Allergy status to sulfonamides; Z88.1 Allergy status to other antibiotic agents; Z79.899 Other long term (current) drug therapy; Z79.51 Long term (current) use of inhaled steroids
CPT/HCPCS: G0480

== ENCOUNTER → 2018-04-29 | Outpatient (REF) | payer MEDICARE ==
[2018-05-01 10:33] LABS: HEPATITIS C VIRUS ABY INDEX 0.1 INDEX (<0.8)
== END ==
LOC: M LAB REF 16:48
DX: Z72.51 High risk heterosexual behavior (principal)
CPT/HCPCS: 86803

== ENCOUNTER → 2018-05-13 | Outpatient (REF) | payer MEDICARE | LOC: M LAB REF 17:19 | DX: J44.9 Chronic obstructive pulmonary disease, unspecified (principal); R05 Cough; Z87.891 Personal history of nicotine dependence | CPT/HCPCS: 87184; 87205 ==

== ENCOUNTER → 2018-05-30 | Outpatient (CLI) | payer MEDICARE | LOC: M RAD 15:43 | DX: J44.9 Chronic obstructive pulmonary disease, unspecified (principal); Z87.891 Personal history of nicotine dependence | CPT/HCPCS: G0297 ==

== ENCOUNTER → 2019-03-05 | Outpatient (CLI) | payer MEDICARE ==
[~2019-03-05] MED LIST changes: +ALPR0.25 PO; -GABA-282 PO; +GABA-843 PO; +PRED-351 PO; -PRED10TA PO; +SYMB16INH INH; -VICO5TAB16 PO; +VICO5TAB17 PO
--- NOTE | 2019-03-05 11:30 | REP ---
CHEST, TWO VIEWS: COMPARISON: 11/04/2016. There are mild increased interstitial markings in both lung bases most consistent with mild bibasilar fibrotic change. This may be minimally worse than on the prior study. No consolidating infiltrate is seen. The heart is normal in size. The mediastinal silhouette is unchanged. Once again, there is a metallic plate and multiple screws in the lower cervical spine status post fusion procedure. There are mild degenerative changes of the spine. IMPRESSION: Mild bibasilar fibrotic change may be minimally worse than on the prior study. Electronically Signed by Kolton Arrington MD 03/05/2019 01:18 P
== END ==
LOC: M SMT 10:16
PROVIDERS: ATTEND Internal Medicine Pulmonary Disease
DX: J44.9 Chronic obstructive pulmonary disease, unspecified (principal)

== ENCOUNTER → 2019-06-02 | Outpatient (CLI) | payer MEDICARE ==
--- NOTE | 2019-06-02 18:56 | REP ---
LOW DOSE LUNG SCREENING CT: Low dose lung screening CT exam was performed with axial images obtained throughout both lungs. Comparison is made with prior study of 05/30/2018. Stable 4 mm nodular density in the right upper lobe is again noted. No new nodule is seen. Scattered interstitial fibrotic change is seen bilaterally, stable. Heart is not enlarged. No mediastinal contour abnormality is seen. Metallic fixation is seen in the lower cervical spine. There are mild atherosclerotic calcifications of the thoracic aorta. IMPRESSION: LUNG RADS Category 2. Stable 4 mm right upper lobe nodule. Followup low dose lung screening CT is recommended in one year. Electronically Signed by Kolton Arrington MD 06/04/2019 09:38 A
== END ==
LOC: M RAD 16:11
PROVIDERS: ATTEND Internal Medicine Pulmonary Disease
DX: Z12.2 Encounter for screening for malignant neoplasm of respiratory organs (principal); Z87.891 Personal history of nicotine dependence; R91.1 Solitary pulmonary nodule; J84.10 Pulmonary fibrosis, unspecified

== ENCOUNTER → 2020-05-20 | Outpatient (CLI) | payer MEDICARE ==
--- NOTE | 2020-05-25 09:11 | REP ---
CT CHEST WITHOUT CONTRAST: LOW-DOSE SCREENING EXAM HISTORY: Lung cancer screening. Chronic obstructive pulmonary disease (COPD). COMPARISON CHEST CT STUDIES: 06/02/2019 and 05/24/2017. 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 The lungs appears hyperinflated overall. There is mild linear fibrosis in the right upper lobe anteriorly unchanged. A stable 4-mm noncalcified pulmonary nodule is visible in the right upper lobe projecting on Page 19 of 92 in Series 201 of todays study. No new pulmonary nodule is appreciated. There is an area of interstitial fibrosis in the lingula in the left infrahilar region unchanged. Study is otherwise unremarkable. IMPRESSION: Stable lung-RADS Category 1 findings. Repeat screening study suggested in one year. MTDD
== END ==
LOC: M RAD 12:34
PROVIDERS: ATTEND Internal Medicine Pulmonary Disease
DX: J44.9 Chronic obstructive pulmonary disease, unspecified (principal); J84.10 Pulmonary fibrosis, unspecified; R91.1 Solitary pulmonary nodule; Z87.891 Personal history of nicotine dependence

== ENCOUNTER → 2020-11-16 | Outpatient (CLI) | payer MEDICARE ==
[~2020-11-16] MED LIST changes: +GABA-282 PO; -GABA-843 PO
--- NOTE | 2020-11-16 16:17 | REPMRS ---
Patient History The patient states she has not had a clinical breast exam in over a year. Patient is postmenopausal. Family history of colorectal cancer at age 50 or over in mother. Benign US guided breast biopsy of the left breast, November 27, 2016. No Hormone Replacement Therapy 3D TOMOSYNTHESIS WAS PERFORMED. [facility] lifetime risk for breast cancer is 2.9%. Volpara breast density b. Digital Woman Screen Mammo: November 16, 2020 - Exam #: [id number] Bilateral CC and MLO view(s) were taken. Technologist: RT Alyssa Prior study comparison: November 27, 2016, left breast digital mammo diagnostic unilateral, performed at [facility]. FINDINGS: There are scattered fibroglandular densities. There has been no change in the appearance of the mammogram from the prior studies. There is a mild amount of residual fibroglandular tissue which is fairly symmetric. There is no interval development of dominant mass, architectural distortion, or clustered microcalcification suggestive of malignancy. Assessment: BI-RADS/ACR category 1 mammogram. Negative Mammogram. Recommendation Routine screening mammogram in 1 year (for women over age 40). This mammogram was interpreted with the aid of an FDA-approved computer-aided dectection system. Electronically Signed By: Kolton Arrington MD 11/16/20 [id number]
== END ==
LOC: M WHC 15:29
PROVIDERS: ATTEND Internal Medicine
DX: Z12.31 Encounter for screening mammogram for malignant neoplasm of breast (principal); Z80.0 Family history of malignant neoplasm of digestive organs

== ENCOUNTER → 2021-03-08 | Outpatient (REF) | payer MEDICARE | LOC: M LAB REF 11:27 | PROVIDERS: ATTEND Internal Medicine | DX: H60.11 Cellulitis of right external ear (principal) ==

== ENCOUNTER → 2021-05-13 | Outpatient (REF) | payer MEDICARE ==
[2021-05-16 23:12] LABS: Lyme Disease IgG Ab 18 kDa Ban Absent (.); Lyme Disease IgG Ab 23 kDa Ban Absent (.); Lyme Disease IgG Ab 28 kDa Ban Absent (.); Lyme Disease IgG Ab 30 kDa Ban Absent (.); Lyme Disease IgG Ab 39 kDa Ban Absent (.); Lyme Disease IgG Ab 41 kDa Ban Absent (.); Lyme Disease IgG Ab 45 kDa Ban Absent (.); Lyme Disease IgG Ab 58 kDa Ban Absent (.); Lyme Disease IgG Ab 66 kDa Ban Absent (.); Lyme Disease IgG Ab 93 kDa Ban Present (.); Lyme Disease IgG West Blot Int Negative (.); Lyme Disease IgG/IgM Antibodie 1.72 ISR (0.00-0.90); Lyme Disease IgM Ab 23 kDa Ban Absent (.); Lyme Disease IgM Ab 39 kDa Ban Absent (.); Lyme Disease IgM Ab 41 kDa Ban Absent (.); Lyme Disease IgM Ab Quantitati <0.80 index (0.00-0.79); Lyme Disease IgM West Blot Int Negative (.)
== END ==
LOC: M LAB REF 15:55
PROVIDERS: ATTEND Internal Medicine
DX: M25.50 Pain in unspecified joint (principal)

== ENCOUNTER → 2021-06-10 | Outpatient (CLI) | payer MEDICARE ==
--- NOTE | 2021-06-10 14:36 | REP ---
INDICATION: HX OF NICOTINE DEPENDENCE. COMPARISON: Multiple the latest 05/20/2020 also low-dose screening CT of the lungs TECHNIQUE: Axial noncontrast images from the thoracic inlet to the upper abdomen using low-dose lung screening technique (LDCT). As per the protocol only lung window images were sent to the read station for interpretation. FINDINGS: There is an unchanged 4 mm size nodule in the right upper lobe. There is an unchanged 4 mm size nodule in the medial basal segment of the right lower lobe. There is an unchanged 2.1 cm sized ground-glass opacity in the lingula abutting the major fissure. No new abnormal nodules, masses, or opacities have developed. Grossly, the mediastinum and pulmonary sharon are stable. Grossly, the imaged upper abdomen and imaged osseous structures are stable. IMPRESSION: Stable low-dose screening CT examination of the lungs. Lung rads category 2 exam. Yearly follow-up is recommended as per the revised Fleischner society criteria. <Electronically signed by Lucas East > 06/10/21 [id number]
== END ==
LOC: M RAD 12:47
PROVIDERS: ATTEND Internal Medicine Pulmonary Disease
DX: Z12.2 Encounter for screening for malignant neoplasm of respiratory organs (principal); Z87.891 Personal history of nicotine dependence; R91.8 Other nonspecific abnormal finding of lung field

== ENCOUNTER 2021-10-14 12:29 | Emergency (ER) | payer MEDICARE ==
[~2021-10-14] VITALS: Ht 157.5 cm; Wt 70.6 kg
[2021-10-14 13:41] LABS: BASO % 0.5 % (0.0-1.0); EOS # 0.1 10^3/uL (0.0-0.5); EOS % 1.1 % (0.0-3.0); HEMATOCRIT 43.2 % (36.0-47.0); HEMOGLOBIN 14.5 g/dl (12.0-15.5); LYMPH # 1.9 10^3/uL (1.5-5.0); LYMPH % 21.2 % (24.0-44.0); MEAN CORPUSCULAR HEMOGLOBIN 29.8 pg (27.0-33.0); MEAN CORPUSCULAR HGB CONC 33.6 g/dl (32.0-36.5); MEAN CORPUSCULAR VOLUME 88.7 fl (80.0-96.0); MONO # 0.6 10^3/uL (0.0-0.8); MONO % 6.7 % (2.0-8.0); NEUTROPHILS # 6.2 10^3/uL (1.5-8.5); NEUTROPHILS % 70.2 % (36.0-66.0); PLATELET COUNT, AUTOMATED 321 10^3/uL (150-450); RED BLOOD COUNT 4.87 10^6/uL (4.00-5.40); WHITE BLOOD COUNT 8.9 10^3/uL (4.0-10.0)
[2021-10-14 14:13] LABS: CK-MB VALUE MASS < 1.0 NG/ML (<3.6); CPK CREATINE PHOSPHOKINASE 42 U/L (26-192); MB/CK RELATIVE INDEX 2.38 (< OR =4)
[2021-10-14 14:17] LABS: BLOOD UREA NITROGEN 19 MG/DL (7-18); CARBON DIOXIDE LEVEL 27 MEQ/L (21-32); CHLORIDE LEVEL 108 MEQ/L (98-107); CREATININE FOR GFR 0.86 MG/DL (0.55-1.30); GLOMERULAR FILTRATION RATE > 60.0 (>45); GLUCOSE, FASTING 101 MG/DL (70-100); POTASSIUM SERUM 3.8 MEQ/L (3.5-5.1); SODIUM LEVEL 141 MEQ/L (136-145)
[2021-10-14 14:18] LABS: ALBUMIN 4.3 GM/DL (3.2-5.2); ALT/SGPT 33 U/L (12-78); BILIRUBIN,DIRECT < 0.1 MG/DL (0.0-0.2); BILIRUBIN,TOTAL 0.4 MG/DL (0.2-1.0); CALCIUM LEVEL 9.9 MG/DL (8.8-10.2); NT-PRO BNP 79 PG/ML (<125); THYROID STIMULATING HORMONE 0.793 uIU/ML (0.358-3.740); THYROXINE (T4) 10.7 UG/DL (4.5-12.0); TOTAL PROTEIN 7.3 GM/DL (6.4-8.2)
[2021-10-14 16:27] VITALS: BP 148/75
== END 2021-10-14 16:29 | disposition home or self-care (01) ==
LOC: M ED 12:29
DX: R05.9 Cough, unspecified (principal); R51.9 Headache, unspecified; R53.83 Other fatigue; R42 Dizziness and giddiness; J44.9 Chronic obstructive pulmonary disease, unspecified; J45.909 Unspecified asthma, uncomplicated; K58.9 Irritable bowel syndrome, unspecified; Z87.09 Personal history of other diseases of the respiratory system; Z88.1 Allergy status to other antibiotic agents; Z88.2 Allergy status to sulfonamides; Z79.899 Other long term (current) drug therapy; Z79.51 Long term (current) use of inhaled steroids; Z87.891 Personal history of nicotine dependence

== ENCOUNTER → 2022-06-20 | Outpatient (CLI) | payer MEDICARE ==
[~2022-06-20] MED LIST changes: +ALBU2.5V10 INH; -ALBU83IN INH
== END ==
LOC: M RAD 12:29
PROVIDERS: ATTEND Internal Medicine Pulmonary Disease
DX: Z12.2 Encounter for screening for malignant neoplasm of respiratory organs (principal); Z87.891 Personal history of nicotine dependence; R91.1 Solitary pulmonary nodule; R91.8 Other nonspecific abnormal finding of lung field

== ENCOUNTER → 2022-09-26 | Outpatient (CLI) | payer MEDICARE | LOC: M PLAIMG 11:24 | PROVIDERS: ATTEND Internal Medicine Pulmonary Disease | DX: J44.9 Chronic obstructive pulmonary disease, unspecified (principal) ==

== ENCOUNTER 2022-09-28 15:48 | Emergency (ER) | payer MEDICARE ==
[~2022-09-28] VITALS: Ht 157.5 cm; Wt 69.7 kg
[2022-09-28 16:53] LABS: BASO # 0.1 10^3/uL (0.0-0.2); BASO % 0.5 % (0.0-1.0); EOS % 0.1 % (0.0-3.0); HEMOGLOBIN 14.4 g/dl (12.0-15.5); LYMPH # 1.4 10^3/uL (1.5-5.0); LYMPH % 14.4 % (24.0-44.0); MEAN CORPUSCULAR HEMOGLOBIN 30.2 pg (27.0-33.0); MEAN CORPUSCULAR HGB CONC 34.3 g/dl (32.0-36.5); MEAN CORPUSCULAR VOLUME 88.1 fl (80.0-96.0); MONO # 0.3 10^3/uL (0.0-0.8); MONO % 2.8 % (2.0-8.0); NEUTROPHILS # 7.7 10^3/uL (1.5-8.5); NEUTROPHILS % 81.5 % (36.0-66.0); PLATELET COUNT, AUTOMATED 354 10^3/uL (150-450); RED BLOOD COUNT 4.77 10^6/uL (4.00-5.40); WHITE BLOOD COUNT 9.4 10^3/uL (4.0-10.0)
[2022-09-28 17:26] LABS: ALKALINE PHOSPHATASE 60 U/L (46-116); ALT/SGPT 20 U/L (7.0-40); AST/SGOT 17 U/L (<34); BILIRUBIN,DIRECT 0.1 MG/DL (<0.4); BILIRUBIN,TOTAL 0.4 MG/DL (0.3-1.2); BLOOD UREA NITROGEN 24 MG/DL (9-23); CALCIUM LEVEL 9.7 MG/DL (8.3-10.6); CARBON DIOXIDE LEVEL 24 MMOL/L (20-31); CHLORIDE LEVEL 105 MMOL/L (98-107); CK-MB VALUE MASS < 1.0 NG/ML (<3.6); CREATININE FOR GFR 0.92 MG/DL (0.55-1.30); GLOMERULAR FILTRATION RATE > 60.0 (>39); GLUCOSE, FASTING 126 MG/DL (74-106); POTASSIUM SERUM 4.4 MMOL/L (3.5-5.1); SODIUM LEVEL 139 MMOL/L (136-145); THYROID STIMULATING HORMONE 0.458 uIU/ML (0.55-4.78); TOTAL PROTEIN 6.8 G/DL (5.7-8.2)
[2022-09-28 17:28] LABS: CPK CREATINE PHOSPHOKINASE 39 U/L (34-145); MB/CK RELATIVE INDEX 2.56 (< OR =4)
[2022-09-28] MEDS ORDERED: KETOROLAC 30 MG/ML 1ML VIAL IV ONE (17:35)
[2022-09-28] MEDS ORDERED: METOCLOPRAMIDE INJ 10MG/2ML VIAL IV ONE (17:35)
[2022-09-28] MEDS ORDERED: NS 1,000 ML IV ONE (17:35)
[2022-09-28] MEDS ORDERED: ISOVUE-370 76% 100ML VIAL As Ordered ONE (18:38)
[2022-09-28 20:44] VITALS: BP 148/72
== END 2022-09-28 20:53 | disposition home or self-care (01) ==
LOC: M ED 15:48
DX: R06.00 Dyspnea, unspecified (principal); J44.9 Chronic obstructive pulmonary disease, unspecified; J45.909 Unspecified asthma, uncomplicated; Z87.891 Personal history of nicotine dependence; Z88.2 Allergy status to sulfonamides; Z79.51 Long term (current) use of inhaled steroids; Z79.899 Other long term (current) drug therapy
CPT/HCPCS: 71045; 71275; 80048; 80076; 82550; 82553; 83605; 84436; 84443; 84484; 85025; 87486; 87581; 87633; 87798; 93005; 93041; 94760; 96361; 96374; 96375; 99284; J1885; J2765; Q9967

== ENCOUNTER → 2022-11-08 | Outpatient (CLI) | payer MEDICARE | LOC: M WHC 13:55 | PROVIDERS: ATTEND Internal Medicine | DX: Z12.31 Encounter for screening mammogram for malignant neoplasm of breast (principal); M85.89 Other specified disorders of bone density and structure, multiple sites ==

== ENCOUNTER → 2023-11-01 | Outpatient (CLI) | payer MEDICARE | LOC: M RAD 14:18 | PROVIDERS: ATTEND Internal Medicine Pulmonary Disease | DX: Z12.2 Encounter for screening for malignant neoplasm of respiratory organs (principal); Z87.891 Personal history of nicotine dependence; R91.1 Solitary pulmonary nodule; I70.0 Atherosclerosis of aorta ==

== ENCOUNTER → 2023-11-20 | Outpatient (CLI) | payer MEDICARE | LOC: M RAD 13:38 | PROVIDERS: ATTEND Internal Medicine Pulmonary Disease | DX: M79.662 Pain in left lower leg (principal) ==

== ENCOUNTER → 2023-11-30 | Outpatient (REF) | payer MEDICARE ==
[2023-11-30 18:58] LABS: TOTAL IRON BINDING CAPACITY 299 UG/DL (250-425)
[2023-11-30 19:00] LABS: IRON (FE) 79 UG/DL (50-170); PERCENT SATURATION 26.4 % (13.2-45.0); RHEUMATOID FACTOR QUANT < 3.5 IU/ML (<14)
[2023-11-30 19:01] LABS: FERRITIN 105.7 NG/ML (7.3-270.7)
[2023-11-30 19:02] LABS: VITAMIN B12 LEVEL 491 PG/ML (211-911)
[2023-12-03 17:07] LABS: CYCLIC CITRULLINATED PEPTIDE 14 units (0-19)
== END ==
LOC: M LAB REF 16:16
PROVIDERS: ATTEND Internal Medicine
DX: M25.50 Pain in unspecified joint (principal); J44.9 Chronic obstructive pulmonary disease, unspecified; R53.83 Other fatigue

== ENCOUNTER → 2024-08-11 | Outpatient (CLI) | payer MEDICARE ==
[~2024-08-11] MED LIST changes: +GABA-1172 PO; -GABA-282 PO
== END ==
LOC: M PLAIMG 13:33
PROVIDERS: ATTEND Internal Medicine Pulmonary Disease
DX: J44.9 Chronic obstructive pulmonary disease, unspecified (principal); M89.8X8 Other specified disorders of bone, other site